=== PATIENT | male | born 1950 | race Caucasian/White ===

== ENCOUNTER 2021-12-13 11:11 | Day surgery (SDC) | payer MEDICARE, BC ==
[2021-12-08 09:58] LABS: BASOPHILS % (AUTO) 0.4 % (0-1); EOSINOPHILS # (AUTO) 0.2 X10'3 (0-0.9); EOSINOPHILS % (AUTO) 2.4 % (0-6); HEMATOCRIT 46.9 % (42.0-52.0); HEMOGLOBIN 15.6 g/dl (14.0-17.9); LYMPHOCYTES # (AUTO) 1.6 X10'3 (1.1-4.8); MEAN CORPUSCULAR HEMOGLOBIN 33.3 PG (27.0-31.0); MEAN CORPUSCULAR HGB CONC 33.1 g/dL (33.0-36.5); MEAN CORPUSCULAR VOLUME 100.4 FL (78-98); MEAN PLATELET VOLUME 9.8 FL (7.4-10.4); MONOCYTES # (AUTO) 0.5 X10'3 (0-0.9); MONOCYTES % (AUTO) 7.8 % (2-12); NEUTROPHILS # (AUTO) 4.1 X10'3 (1.8-7.7); NEUTROPHILS % (AUTO) 64.4 % (42-75); PLATELET COUNT 175 X10'3 (140-440); RED BLOOD COUNT 4.67 X10'6 (4.70-6.10); RED CELL DISTRIBUTION WIDTH 16.2 % (11.5-14.5); WHITE BLOOD COUNT 6.3 X10'3 (4.5-11.0)
[2021-12-08 10:21] LABS: APTT 41 SECONDS (22-32)
[2021-12-08 10:48] LABS: ALBUMIN 3.6 G/DL (3.4-5.0); ANION GAP 7 (8-16); BLOOD UREA NITROGEN 21 MG/DL (7-18); BUN/CREATININE RATIO 21.4 (5.4-32.0); CALCIUM 9.4 MG/DL (8.5-10.1); CHLORIDE 101 MMOL/L (99-107); CHOL/HDL RATIO 2.7 (0.00-4.99); CHOLESTEROL 119 MG/DL (0-200); CREATININE 0.98 MG/DL (0.60-1.10); GLUCOSE 120 MG/DL (70-104); HDL CHOLESTEROL 44 MG/DL (35-60); LDL CHOLESTEROL 65 MG/DL (50-100); POTASSIUM 3.7 MMOL/L (3.5-5.1); SODIUM 139 MMOL/L (135-145); TOTAL CARBON DIOXIDE 31.3 MMOL/L (24-32); TRIGLYCERIDES 58 MG/DL (20-135); eGFR 75 ML/MIN
[~2021-12-13] VITALS: Ht 177.8 cm; Wt 126.7 kg
[2021-12-13] MEDS ORDERED: diphenhydrAMINE 25mg capsule PO PRN (11:35)
[2021-12-13] MEDS ORDERED: normal saline 1,000 ML IV SCH (11:35)
[2021-12-13] MEDS ORDERED: LORazepam 0.5 MG tablet PO PRN (11:35)
[2021-12-13 11:37] VITALS: BP 130/90
[2021-12-13] MEDS ORDERED: ATOR20TA66 PO (12:08)
[2021-12-13] MEDS ORDERED: FLO0.4C PO (12:08)
[2021-12-13] MEDS ORDERED: UMEC1DIS INH (12:08)
[2021-12-13] MEDS ORDERED: DULA3PEN INJ (12:08)
[2021-12-13] MEDS ORDERED: VITAMIN D3 PO (12:08)
[2021-12-13] MEDS ORDERED: GLIM4TAB7 PO (12:08)
[2021-12-13] MEDS ORDERED: RIVA20TA PO (12:08)
[2021-12-13] MEDS ORDERED: ALBUTEROL INHALER INH (12:08)
[2021-12-13] MEDS ORDERED: VITAMIN B12 PO (12:08)
[2021-12-13] MEDS ORDERED: FURO80TA3 PO (12:08)
[2021-12-13] MEDS ORDERED: MULT-227 PO (12:08)
[2021-12-13] MEDS ORDERED: ALLO300T8 PO (12:08)
[2021-12-13] MEDS ORDERED: CANA300T PO (12:08)
[2021-12-13] MEDS ORDERED: POTA8CAP20 PO (12:08)
[2021-12-13] MEDS ORDERED: LIDOcaine 1%/PF 5ML 10 MG/ML VIAL ONE ×3 (12:32→13:54)
[2021-12-13] MEDS ORDERED: iohexol 350MG/ML 100ml bottle IV ONE ×2 (12:33→14:26)
[2021-12-13] MEDS ORDERED: fentaNYL/PF 50MCG/1 ML 2ML syringe ONE (12:33)
[2021-12-13] MEDS ORDERED: midazolam 1 mg/ML 2ml injection ONE (12:33)
[2021-12-13] MEDS ORDERED: diphenhydrAMINE 50 mg/ml inj ONE (13:33)
[2021-12-13 14:21] LABS: ISTAT HGB ART 16.3 g/dl (14.0-18.0); ISTAT Hct ART 48 %PCV (42-52); ISTAT O2 SATURATION ARTERIAL 89 % (95-98); ISTAT SOURCE ART
[2021-12-13 14:48] VITALS: BP 106/68
[2021-12-13 15:15] VITALS: BP 137/47
[2021-12-13 15:21] LABS: ISTAT Hct MIX 49 %PCV (42-52); ISTAT O2 SATURATION MIX VENOUS 58 % (60-80); ISTAT SOURCE VEN
[2021-12-13 15:30] VITALS: BP 120/73
[2021-12-13] MEDS ORDERED: HYDROcodone/acetaminophen 5mg/325mg tablet PO PRN (15:45)
[2021-12-13] MEDS ORDERED: HYDROcodone/acetaminophen 10/325mg tab PO PRN (15:45)
[2021-12-13 15:47] VITALS: BP 116/66
[2021-12-13 16:15] VITALS: BP 126/72
== END 2021-12-13 17:15 | disposition home or self-care (01) ==
LOC: SSTAY O 11:11
PROVIDERS: ATTEND Student in an Organized Health Care Education/Training Program
DX: I35.0 Nonrheumatic aortic (valve) stenosis (principal); J44.9 Chronic obstructive pulmonary disease, unspecified; E11.9 Type 2 diabetes mellitus without complications; I11.0 Hypertensive heart disease with heart failure; I50.9 Heart failure, unspecified; M10.9 Gout, unspecified; Z86.73 Personal history of transient ischemic attack (TIA), and cerebral infarction without residual deficits; I48.91 Unspecified atrial fibrillation; Z90.49 Acquired absence of other specified parts of digestive tract; Z79.01 Long term (current) use of anticoagulants; Z79.899 Other long term (current) drug therapy
CPT/HCPCS: 36415; 80048; 80061; 82803; 82948; 85014; 85025; 85610; 85730; 93005; 93456; 99152; 99153; C1760; C1769; J1200; J1644; J2250; J3010; J3490; J7030; Q9967; A4620; A6258; A6449

== ENCOUNTER 2022-02-17 10:03 | Outpatient (CLI) | payer MEDICARE, BC ==
[~2022-02-17] VITALS: Ht 172.7 cm; Wt 124.3 kg
[~2022-02-17 10:03] MED LIST: ALBUTEROL INHALER INH; ALLO300T8 PO; ATOR20TA66 PO; CANA300T PO; DULA3PEN INJ; FLO0.4C PO; FURO80TA3 PO; GLIM4TAB7 PO; MULT-227 PO; POTA8CAP20 PO; RIVA20TA PO; UMEC1DIS INH; VITAMIN B12 PO; VITAMIN D3 PO
[2022-02-17 11:15] LABS: BASOPHILS % (AUTO) 0.4 % (0-1); EOSINOPHILS # (AUTO) 0.1 X10'3 (0-0.9); EOSINOPHILS % (AUTO) 2.4 % (0-6); HEMATOCRIT 47.2 % (42.0-52.0); HEMOGLOBIN 15.8 g/dl (14.0-17.9); LYMPHOCYTES # (AUTO) 1.8 X10'3 (1.1-4.8); LYMPHOCYTES % (AUTO) 31.9 % (21-51); MEAN CORPUSCULAR HEMOGLOBIN 32.2 PG (27.0-31.0); MEAN CORPUSCULAR HGB CONC 33.5 g/dL (33.0-36.5); MEAN CORPUSCULAR VOLUME 96.2 FL (78-98); MEAN PLATELET VOLUME 10.1 FL (7.4-10.4); MONOCYTES # (AUTO) 0.5 X10'3 (0-0.9); MONOCYTES % (AUTO) 8.5 % (2-12); NEUTROPHILS # (AUTO) 3.3 X10'3 (1.8-7.7); NEUTROPHILS % (AUTO) 56.8 % (42-75); PLATELET COUNT 166 X10'3 (140-440); RED BLOOD COUNT 4.91 X10'6 (4.70-6.10); WHITE BLOOD COUNT 5.7 X10'3 (4.5-11.0)
[2022-02-17 11:26] LABS: APTT 38 SECONDS (22-32)
[2022-02-17 11:27] LABS: ABG BASE EXCESS 4.1 mmol/L (-2.0-2.0); ABG HCO3 28.7 mmol/L (22.0-26.0); ABG OXYGEN SATURATION 94.9 % (94-97); ABG PCO2 (T) 42.5 mmHg (35.0-48.0); ABG PO2 (T) 75.1 mmHg (75.0-100.0); ALLEN'S TEST POSITIVE; FCOHb 0.9 % (0.0-3.9); FMetHb 0.1 % (0.0-1.5); TOTAL HEMOGLOBIN 16.1 G/dl (14.0-17.9)
[2022-02-17 11:32] LABS: ALANINE AMINOTRANSFERASE 29 U/L (12-78); ALBUMIN 3.7 G/DL (3.4-5.0); ALBUMIN/GLOBULIN RATIO 0.8 (1.1-1.5); ALKALINE PHOSPHATASE 80 IU/L (46-116); ANION GAP 7 (8-16); ASPARTATE AMINO TRANSFERASE 23 U/L (10-37); BILIRUBIN,TOTAL 1.5 MG/DL (0.1-1.0); BLOOD UREA NITROGEN 30 MG/DL (7-18); BUN/CREATININE RATIO 34.1 (5.4-32.0); CALCIUM 9.7 MG/DL (8.5-10.1); CHLORIDE 104 MMOL/L (99-107); CREATININE 0.88 MG/DL (0.60-1.10); GLUCOSE 93 MG/DL (70-104); SODIUM 140 MMOL/L (135-145); TOTAL CARBON DIOXIDE 28.7 MMOL/L (24-32); TOTAL PROTEIN 8.2 G/DL (6.4-8.2); eGFR 85 ML/MIN
[2022-02-17] MEDS ORDERED: albuterol 2.5 MG/3 ML nebule NEB ONE (11:45)
[2022-02-17] MEDS ORDERED: IODIXANOL 320 MG/ML INFUS..BTL 100ML IV ONE (12:05)
== END 2022-02-17 23:59 | disposition home or self-care (01) ==
LOC: 64 CT 10:03
PROVIDERS: ATTEND Internal Medicine Cardiovascular Disease
DX: Z01.818 Encounter for other preprocedural examination (principal); J44.9 Chronic obstructive pulmonary disease, unspecified; G47.30 Sleep apnea, unspecified; K76.0 Fatty (change of) liver, not elsewhere classified; N28.1 Cyst of kidney, acquired; I51.7 Cardiomegaly; K82.8 Other specified diseases of gallbladder; K31.89 Other diseases of stomach and duodenum; K57.30 Diverticulosis of large intestine without perforation or abscess without bleeding; K40.20 Bilateral inguinal hernia, without obstruction or gangrene, not specified as recurrent; I65.29 Occlusion and stenosis of unspecified carotid artery; I70.0 Atherosclerosis of aorta; Z87.891 Personal history of nicotine dependence; Z79.899 Other long term (current) drug therapy
CPT/HCPCS: 36415; 36600; 71046; 71275; 74174; 80053; 82803; 85018; 85025; 85610; 85730; 94060; 94727; 94729; 94760; J3490; Q9967

== ENCOUNTER 2022-03-02 08:48 | Outpatient (CLI) | payer MEDICARE, BC ==
[~2022-03-02] VITALS: Ht 175.3 cm; Wt 127.2 kg
[2022-03-02 15:51] VITALS: BP 109/70
--- NOTE | 2022-03-02 15:52 | NUR ---
Patient and Camilla and daughter Grace were in the [facility] clinic today to consult with Dr. Puri, Dr. Zaida Edward and Dr. Triplett. [facility] test attempted, patient unsteady and unable to complete the test. Vital signs measured. Patient education reviewed and questions answered.
[2022-03-23] MEDS ORDERED: METO-395 PO (16:31)
== END 2022-03-02 23:59 | disposition home or self-care (01) ==
LOC: TAVR 08:48
PROVIDERS: ATTEND Internal Medicine Cardiovascular Disease
DX: Z13.6 Encounter for screening for cardiovascular disorders (principal)

== ENCOUNTER 2022-03-30 06:20 | Inpatient (IN) | payer MEDICARE, BC ==
[2022-03-23 15:06] LABS: CLARITY,URINE CLEAR (Clear); COLOR,URINE YELLOW (Yellow); GLUCOSE, URINE >=1000 mg/dl (Neg); KETONES,URINE NEGATIVE (Neg); LEUKOCYTE ESTERASE ,URINE NEGATIVE (Neg); NITRITES, URINE NEGATIVE (Neg); OCCULT BLOOD,URINE NEGATIVE (Neg); PROTEIN,URINE NEGATIVE (Neg); UROBILINOGEN,URINE 0.2 E.U/dL (0.2-1.0)
[2022-03-23 15:12] LABS: BASOPHILS % (AUTO) 0.3 % (0-1); EOSINOPHILS # (AUTO) 0.1 X10'3 (0-0.9); EOSINOPHILS % (AUTO) 1.6 % (0-6); LYMPHOCYTES # (AUTO) 2.1 X10'3 (1.1-4.8); LYMPHOCYTES % (AUTO) 34.2 % (21-51); MEAN CORPUSCULAR HEMOGLOBIN 31.5 PG (27.0-31.0); MEAN CORPUSCULAR HGB CONC 32.6 g/dL (33.0-36.5); MEAN CORPUSCULAR VOLUME 96.6 FL (78-98); MEAN PLATELET VOLUME 9.9 FL (7.4-10.4); MONOCYTES # (AUTO) 0.5 X10'3 (0-0.9); MONOCYTES % (AUTO) 8.6 % (2-12); NEUTROPHILS # (AUTO) 3.3 X10'3 (1.8-7.7); NEUTROPHILS % (AUTO) 55.3 % (42-75); PRE OP HEMATOCRIT 46.4 % (42.0-52.0); PRE OP HEMOGLOBIN 15.1 g/dL (14.0-17.9); PRE OP PLATELET COUNT 169 X10'3 (140-440); RED CELL DISTRIBUTION WIDTH 17.1 % (11.5-14.5)
[2022-03-23 15:17] LABS: PRE OP INR 1.2 INR; PRE OP PROTIME 12.3 SECONDS (9.0-12.0)
[2022-03-23 15:20] LABS: ALBUMIN 3.7 G/DL (3.4-5.0); ALKALINE PHOSPHATASE 72 IU/L (46-116); BLOOD UREA NITROGEN 27 MG/DL (7-18); BUN/CREATININE RATIO 27.6 (5.4-32.0); CALCIUM 9.8 MG/DL (8.5-10.1); CHLORIDE 100 MMOL/L (99-107); CREATININE 0.98 MG/DL (0.60-1.10); PRE OP ALT 26 U/L (30-65); PRE OP ANION GAP 5 (8-16); PRE OP AST 23 U/L (10-37); PRE OP BILIRUB, TOTAL 1.7 MG/DL (0.0-1.0); PRE OP GLUCOSE 73 MG/DL (70-104); PRE OP SODIUM 136 MMOL/L (135-145); TOTAL CARBON DIOXIDE 30.6 MMOL/L (24-32); TOTAL PROTEIN 7.4 G/DL (6.4-8.2); eGFR 75 ML/MIN
[2022-03-23 15:29] LABS: UA COLLECTION TYPE VOIDED
[2022-03-23 15:40] LABS: SQUAMOUS EPITHELIAL CELL,UR FEW /LPF (FEW)
[2022-03-23 15:41] LABS: BACTERIA,URINE FEW /HPF (Neg); RBC,URINE 0-2 /HPF (0-2); WBC,URINE 0-4 /HPF (0-4)
[2022-03-23 15:51] LABS: HEMOGLOBIN A1C 6.2 % (4.5-6.2)
[2022-03-30] VITALS (27 sets, daily range): BP systolic 112–162; BP diastolic 55–100
[~2022-03-30] VITALS: Ht 175.3 cm; Wt 127.6 kg
[~2022-03-30 06:20] MED LIST changes: +ALBU18HF2 INH; -ALBUTEROL INHALER INH; +CHOL100046 PO; +CYAN-34 PO; +DOCUMENT DATE & TIME OF BETA-BLOCKER PO ONE; +METO-395 PO; -VITAMIN B12 PO; -VITAMIN D3 PO; +aspirin 325mg tablet PO ONE; +ceFAZolin inj. 3,000 MG in normal saline 100ml IV soln 100 ML IV ONE; +famotidine 20mg tablet PO ONE; +nitroPRUSSIDE (NIPRIDE) (200MCG/ML) 100ML Drip IV SCH; +ondansetron/PF 4mg/2ml inj IV PRN; +phenylephrine inj 50 MG in normal saline 250ml IV solN IV SCH; +protamine sulfate 10mg/ml inj. ONE; +ringers solution, lacted 1,000 ML IV SCH; +vancomycin 1,500 MG in NS 300ml IV soln IV ONE
[2022-03-30] MEDS ORDERED: heparin 1,000 UNITS/NS 500ml 500 ML ONE ×2 (08:25→09:24)
[2022-03-30] MEDS ORDERED: iohexol 350MG/ML 100ml bottle IV ONE (08:27)
[2022-03-30] MEDS ORDERED: fentaNYL/PF 50MCG/1 ML 2ML syringe ONE (08:35)
[2022-03-30] MEDS ORDERED: heparin 1,000 units/ml 10ml inj ONE (08:37)
[2022-03-30] MEDS ORDERED: sevoflurane 250ml liquid IH ONE (08:37)
[2022-03-30] MEDS ORDERED: rocuronium 10mg/ml inj IV ONE (10:08)
[2022-03-30] MEDS ORDERED: epiNEPHrine 1 mg/ml inj ONE (10:08)
[2022-03-30] MEDS ORDERED: phenylephrine 10mg/ml inj. -priapism dosing ONE (10:08)
[2022-03-30] MEDS ORDERED: etomidate 2mg/ml inj. ONE (10:08)
[2022-03-30] MEDS ORDERED: glycopyrrolate 0.2mg/ml inj ONE (10:08)
[2022-03-30] MEDS ORDERED: ondansetron/PF 4mg/2ml inj ONE (10:08)
[2022-03-30] MEDS ORDERED: neostigmine methylsulfate 1 MG/ML 10ml vial ONE (10:08)
[2022-03-30] MEDS ORDERED: dexamethasone sod phosphate 4mg/ml inj. ONE (10:08)
[2022-03-30] MEDS ORDERED: LIDOcaine 2% (20mg/ml) 5ml vial ONE (10:08)
[2022-03-30] MEDS ORDERED: insulin Lispro (HumaLOG) vial - multi-dose SQ SCH (10:15)
[2022-03-30] MEDS ORDERED: labetalol 20mg/4ml (5mg/ml) syringe IV PRN (10:15)
[2022-03-30] MEDS ORDERED: pantoprazole 40mg Tablet.DR PO PRN (10:15)
[2022-03-30] MEDS ORDERED: potassium Cl 20 mEq SR tablet PO PRN (10:15)
[2022-03-30] MEDS ORDERED: normal saline 1000ml 1,000 ML IV SCH (10:15)
[2022-03-30] MEDS ORDERED: diphenhydrAMINE 25mg capsule PO PRN (10:15)
[2022-03-30] MEDS ORDERED: DEXTROSE 15 GM of carb/4 tabs (each vial/BOTTLE has 4 tablets) PO PRN ×2 (10:15)
[2022-03-30] MEDS ORDERED: ALPRAZolam 0.25mg tablet PO PRN (10:15)
[2022-03-30] MEDS ORDERED: magnesium 2GM in 50ml NS 50 ML IV PRN (10:15)
[2022-03-30] MEDS ORDERED: glucagon, human recombinant 1mg kit SUBCUT PRN (10:15)
[2022-03-30] MEDS ORDERED: acetaminophen 325mg tablet PO PRN (10:15)
[2022-03-30] MEDS ORDERED: docusate sod 100mg capsule PO PRN (10:15)
[2022-03-30] MEDS ORDERED: potassium Cl 40MEQ/270ML bag 250 ML IV PRN (10:15)
[2022-03-30] MEDS ORDERED: magnesium 4gm in 100ml NS 100 ML IV PRN (10:15)
[2022-03-30] MEDS ORDERED: proCHLORperazine 10 MG/2 ml inj IV PRN (10:15)
[2022-03-30] MEDS ORDERED: hydrALAZINE 20mg/ml inj. IV PRN (10:15)
[2022-03-30] MEDS ORDERED: MESSAGE TO PHARMACY PO ONE (10:15)
[2022-03-30] MEDS ORDERED: insulin regular, human U-100 3ml vial - multi-dose SQ SCH (10:15)
[2022-03-30] MEDS ORDERED: potassium Cl 40MEQ/1/2NS 520ml 520 ML IV PRN (10:15)
[2022-03-30] MEDS ORDERED: potassium Cl 20mEq/100mL bag 100 ML IV PRN (10:15)
[2022-03-30] MEDS ORDERED: potassium CL 10mEq/100ml bag 100 ML IV PRN (10:15)
[2022-03-30] MEDS ORDERED: ondansetron/PF 4mg/2ml inj IV PRN (10:15)
[2022-03-30] MEDS ORDERED: dextrose 50%-water 50ml dispensing syringe IV PRN ×2 (10:15)
[2022-03-30] MEDS ORDERED: sugammadex 200mg/2ml injection IV ONE (10:16)
--- NOTE | 2022-03-30 10:20 | NUR ---
Received from OR via BED, accompanied by Anesthesiologist DR BOOTH and report given by Anesthesiologist AND HIGHWAY COMMISSIONER. PT DROWSY BUT APPROPRIATE, BILAT GROINS W/GAUZE DRSG W/TAGADERM COVERING CDI, SOFT, NO OOZING, HEMATOMA OR SWELLING NOTED. BILAT PEDAL/TIBIAL PULSES DOPPLER. NEURO CHECKS INTACT, EQUAL PURCHASING AND CLAIMS SUPERVISOR/PUSH PULL UPPER AND LOWER EXTREMITIES, SMILE/FROWN SYMMETRICAL, TONGUE MIDLINE. Addendum: 03/30/22 at 1136 by Julia Lam RN Amended: Links added.
[2022-03-30] MEDS ORDERED: albuterol 60 PUFF/8GM Inhaler IH ONE (10:37)
[2022-03-30] MEDS ORDERED: albuterol 2.5 MG/3 ML nebule NEB PRN (12:00)
--- NOTE | 2022-03-30 13:00 | NUR ---
Report called to receiving nurse. Transferred via BED ON CM AND O2, 2 BAGS OF Belongings, 1 C-PAP SENT W/PT TO ROOM 302. BLL, CALL LIGHT GIVEN, SIDE RAILS UP, SATELLITE DISH TECHNICIAN AT BEDSIDE TO RECEIVE PT, PTS AND DAUGHTER ALSO PRESENT. NO CHANGES IN BILAT GROIN SITES OR NEURO STATUS. Special Issues communicated to receiving nurse. YES. Addendum: 03/30/22 at 1353 by Julia Lam RN Amended: Links added.
[2022-03-30] MEDS: sod chloride 0.9% 10ml flush syringe IV SCH (16:33)
[2022-03-30] MEDS: ceFAZolin 1GM/D5W- ADD-VANTAGE 50 ML IV SCH (16:34)
--- NOTE | 2022-03-30 18:30 | NUR ---
Patient in room PCU 3024. I have received report from Jeannette Coker and had the opportunity to ask questions and assume patient care.
[2022-03-30] MEDS: vancomycin/NS 1 GM ADD-VANTAGE 250 ML IV SCH (19:53)
[2022-03-30] MEDS ORDERED: atorvastatin 20mg tablet PO SCH (21:00)
[2022-03-30] MEDS ORDERED: tamsulosin 0.4mg capsule PO SCH (21:00)
[2022-03-30] MEDS ORDERED: insulin glargine (Lantus) pen - multi-dose SQ SCH (21:00)
[2022-03-31] MEDS: sod chloride 0.9% 10ml flush syringe IV SCH ×2 (00:26→08:00)
[2022-03-31] MEDS: ceFAZolin 1GM/D5W- ADD-VANTAGE 50 ML IV SCH ×2 (00:26→10:10)
[2022-03-31 02:00] VITALS: BP 118/71
--- NOTE | 2022-03-31 06:18 | NUR ---
Problems reprioritized. Patient report given, questions answered & plan of care reviewed with Ana Luisa Coulter RN.
[2022-03-31] MEDS ORDERED: metoprolol succinate 25mg (24-HOUR) SR. Tablet PO SCH (08:00)
[2022-03-31] MEDS ORDERED: furosemide 40mg tablet PO SCH (08:00)
[2022-03-31] MEDS ORDERED: cyanocobalamin 500mcg tablet PO SCH (08:00)
[2022-03-31] MEDS ORDERED: VILANTEROL TR IH SCH (08:00)
[2022-03-31] MEDS ORDERED: cholecalciferol (vitamin D3) 1,000 unit (25mcg) tablet PO SCH (08:00)
[2022-03-31] MEDS ORDERED: potassium chloride 8mEq ER tablet PO SCH (08:00)
[2022-03-31] MEDS ORDERED: allopurinol 300 MG tablet PO SCH (08:00)
[2022-03-31] MEDS ORDERED: multivitamins, therapeutics tablet PO SCH (08:00)
[2022-03-31] MEDS ORDERED: UMECLIDINIUM BRM IH SCH (08:00)
[2022-03-31 08:08] LABS: BASOPHILS % (AUTO) 0.3 % (0-1); EOSINOPHILS # (AUTO) 0.1 X10'3 (0-0.9); EOSINOPHILS % (AUTO) 0.8 % (0-6); HEMATOCRIT 46.3 % (42.0-52.0); LYMPHOCYTES # (AUTO) 1.4 X10'3 (1.1-4.8); LYMPHOCYTES % (AUTO) 20.2 % (21-51); MEAN CORPUSCULAR HEMOGLOBIN 31.4 PG (27.0-31.0); MEAN CORPUSCULAR HGB CONC 32.4 g/dL (33.0-36.5); MEAN CORPUSCULAR VOLUME 96.8 FL (78-98); MEAN PLATELET VOLUME 9.9 FL (7.4-10.4); MONOCYTES # (AUTO) 0.7 X10'3 (0-0.9); MONOCYTES % (AUTO) 10.1 % (2-12); NEUTROPHILS # (AUTO) 4.9 X10'3 (1.8-7.7); NEUTROPHILS % (AUTO) 68.6 % (42-75); PLATELET COUNT 134 X10'3 (140-440); RED BLOOD COUNT 4.78 X10'6 (4.70-6.10); RED CELL DISTRIBUTION WIDTH 17.2 % (11.5-14.5); WHITE BLOOD COUNT 7.2 X10'3 (4.5-11.0)
[2022-03-31 08:26] LABS: ALANINE AMINOTRANSFERASE 21 U/L (12-78); ALBUMIN 3.8 G/DL (3.4-5.0); ALKALINE PHOSPHATASE 70 IU/L (46-116); ANION GAP 7 (8-16); ASPARTATE AMINO TRANSFERASE 21 U/L (10-37); BILIRUBIN,TOTAL 1.9 MG/DL (0.1-1.0); BLOOD UREA NITROGEN 20 MG/DL (7-18); CALCIUM 9.6 MG/DL (8.5-10.1); CHLORIDE 100 MMOL/L (99-107); CREATININE 0.91 MG/DL (0.60-1.10); GLUCOSE 126 MG/DL (70-104); MAGNESIUM 1.9 MG/DL (1.5-2.4); POTASSIUM 4.5 MMOL/L (3.5-5.1); SODIUM 137 MMOL/L (135-145); TOTAL CARBON DIOXIDE 29.9 MMOL/L (24-32); TOTAL PROTEIN 7.5 G/DL (6.4-8.2); eGFR 81 ML/MIN
[2022-03-31] MEDS: vancomycin/NS 1 GM ADD-VANTAGE 250 ML IV SCH (10:10)
== END 2022-03-31 13:47 | disposition home or self-care (01) | DRG 266 ==
LOC: PAS IN 06:20 → PCU 3S 13:18
PROVIDERS: ADMIT Internal Medicine Cardiovascular Disease; ATTEND Internal Medicine Cardiovascular Disease
PROC: B41D1ZZ Fluoroscopy of Aorta and Bilateral Lower Extremity Arteries using Low Osmolar Contrast (ICD-10-PCS; 2022-03-30)
PROC: 5A09357 Assistance with Respiratory Ventilation, Less than 24 Consecutive Hours, Continuous Positive Airway Pressure (ICD-10-PCS; 2022-03-30)
PROC: 02RF38Z Replacement of Aortic Valve with Zooplastic Tissue, Percutaneous Approach (ICD-10-PCS; principal; 2022-03-30 08:37)
DX: I35.0 Nonrheumatic aortic (valve) stenosis (principal); Z00.6 Encounter for examination for normal comparison and control in clinical research program; I50.33 Acute on chronic diastolic (congestive) heart failure; I69.354 Hemiplegia and hemiparesis following cerebral infarction affecting left non-dominant side; I48.20 Chronic atrial fibrillation, unspecified; J44.9 Chronic obstructive pulmonary disease, unspecified; E78.5 Hyperlipidemia, unspecified; I11.0 Hypertensive heart disease with heart failure; E11.9 Type 2 diabetes mellitus without complications; Z79.01 Long term (current) use of anticoagulants
CPT/HCPCS: 33361; 36415; 71045; 71046; 76376; 76937; 80053; 81001; 82948; 83036; 83735; 83880; 85025; 85347; 85610; 85730; 87081; 93005; 93308; 93312; A4615; A4618; A6258; A6449; C1756; C1760; C1769; C1894; G0378; J0171; J0690; J1100; J1644; J1815; J2370; J2405; J2710; J2720; J3010; J3370; J3490; J7030; J7040; J7050; J7120; Q0163; Q9967